=== PATIENT | female | born 1955 | race Hispanic/Latino ===

== ENCOUNTER 2017-09-14 09:38 | Outpatient (CLI) | payer OTHER ==
--- NOTE | 2017-09-15 13:44 | Mammography Report ---
BILATERAL DIGITAL SCREENING MAMMOGRAM with CAD: 09/14/17 09:38:00 CLINICAL: Routine screening. COMPARISON:01/06/16 FINDINGS: The breasts are mostly fatty. No mass, architectural distortion or suspicious calcifications. IMPRESSION: No mammographic evidence of malignancy. BI-RADS CATEGORY: 1 - - Negative RECOMMENDATION: Routine mammographic screening in one year. COMMENT: Patient follow-up letters are generated by our [employer] application.
== END 2017-09-14 09:39 | disposition home or self-care (01) ==
LOC: SPVWC 09:38
DX: Z12.31 Encounter for screening mammogram for malignant neoplasm of breast (principal)
CPT/HCPCS: 77067

== ENCOUNTER 2019-03-15 10:42 | Outpatient (CLI) | payer OTHER ==
--- NOTE | 2019-03-18 15:46 | Mammography Report ---
BILATERAL SCREENING MAMMOGRAM DIGITAL WITH CAD and WITH 3D TOMOSYNTHESIS INDICATION: Screening. COMPARISONS: 09/14/2017 FINDINGS: 2D and 3D craniocaudal and mediolateral oblique views of both breasts were obtained [employer] digital acquisition. The breasts are mostly fatty. No mass, architectural distortion or suspiciou s calcifications. No suspicious findings are noted in either breast. In addition to standard review, the examination was analyzed for possible abnormalities using a compu ter-assisted detection device (iCAD). IMPRESSION: NO EVIDENCE OF MALIGNANCY IN EITHER BREAST. SCREENING MAMMOGRAPHY IN ONE YEAR IS RECOMMENDED. BI-RADS CATEGORY 1: NEGATIVE COMMENT: Patient follow-up letters are generated by our [employer] application. Signer Name: Alphonso Figueroa MD Signed: 03/18/2019 3:42 PM Workstation Name: [id number]
--- NOTE | 2019-03-18 15:46 | Mammography Report ---
BILATERAL SCREENING MAMMOGRAM DIGITAL WITH CAD and WITH 3D TOMOSYNTHESIS INDICATION: Screening. COMPARISONS: 09/14/2017 FINDINGS: 2D and 3D craniocaudal and mediolateral oblique views of both breasts were obtained [employer] digital acquisition. The breasts are mostly fatty. No mass, architectural distortion or suspiciou s calcifications. No suspicious findings are noted in either breast. In addition to standard review, the examination was analyzed for possible abnormalities using a compu ter-assisted detection device (iCAD). IMPRESSION: NO EVIDENCE OF MALIGNANCY IN EITHER BREAST. SCREENING MAMMOGRAPHY IN ONE YEAR IS RECOMMENDED. BI-RADS CATEGORY 1: NEGATIVE COMMENT: Patient follow-up letters are generated by our [employer] application. Signer Name: Alphonso Figueroa MD Signed: 03/18/2019 3:42 PM Workstation Name: [id number]
== END 2019-03-15 10:43 | disposition home or self-care (01) ==
LOC: SPVWC 10:42
DX: Z12.31 Encounter for screening mammogram for malignant neoplasm of breast (principal)
CPT/HCPCS: 77063; 77067